=== PATIENT | male | born 1970 | race Caucasian/White ===

== ENCOUNTER 2017-08-06 03:03 | Emergency (ER) | payer SELFPAY ==
[~2017-08-06] VITALS: Ht 175.3 cm; Wt 86.2 kg
[2017-08-06 03:29] VITALS: Ht 175.3 cm; Wt 86.2 kg
[2017-08-06 09:04] VITALS: BP 99/73
== END 2017-08-06 09:04 | disposition home or self-care (01) ==
LOC: ED 03:03
DX: S00.81XA Abrasion of other part of head, initial encounter (principal); F10.129 Alcohol abuse with intoxication, unspecified; W22.8XXA Striking against or struck by other objects, initial encounter; Y93.89 Activity, other specified; Y92.89 Other specified places as the place of occurrence of the external cause; Y99.8 Other external cause status